=== PATIENT | male | born 1965 | race Caucasian/White ===

== ENCOUNTER → 2024-02-08 13:11 | Outpatient (REF) | payer BC, SELFPAY | LOC: RAD 13:11 | PROVIDERS: ATTENDING PHYSICIAN Physician Assistant; FAMILY PHYSICIAN Family Medicine | DX: M15.9 Polyosteoarthritis, unspecified (principal); M19.049 Primary osteoarthritis, unspecified hand; R20.2 Paresthesia of skin | CPT/HCPCS: 73120 ==

== ENCOUNTER → 2024-02-12 09:08 | Outpatient (REF) | payer BC, SELFPAY ==
[2024-02-12 10:34] LABS: IgA 128 mg/dl (70-400)
[2024-02-12 10:57] LABS: Vitamin D, 25-OH*** 55.9 ng/mL (30-80)
[2024-02-12 11:02] LABS: Total Protein 6.7 g/dl (6.3-8.2)
[2024-02-12 11:10] LABS: TSH Reflex To Free T4 < 0.02 uIU/ml (0.47-4.68)
[2024-02-12 11:40] LABS: Free T4 0.93 ng/dl (0.78-2.19)
[2024-02-12 12:12] LABS: Urine Calcium 17.3 mg/dl
[2024-02-12 13:02] LABS: 24 Hour Urine Total Volume 2000 ml
[2024-02-14 07:51] LABS: Endomysial IgA Antibody Titer <1:10 (<1:10)
[2024-02-14 10:33] LABS: Intact PTH 21.3 pg/ml (13.6-85.8)
[2024-02-14 15:54] LABS: tTG IgA Antibody 7.8 EU/ml (0-19); tTG IgG Antibody 10.3 EU/ml (0-19)
[2024-02-14 20:11] LABS: Albumin 4.26 g/dL (3.75-5.01); Alpha 1 Globulin 0.26 g/dL (0.19-0.46); Alpha 2 Globulin 0.67 g/dL (0.48-1.05); SPEP IFE Reflex Not Done; Total Protein-Electrophoresis 6.6 g/dL (6.3-8.2)
== END ==
LOC: REG 09:08
PROVIDERS: ATTENDING PHYSICIAN Physician Assistant; FAMILY PHYSICIAN Family Medicine
DX: E07.9 Disorder of thyroid, unspecified (principal); E21.5 Disorder of parathyroid gland, unspecified; E55.9 Vitamin D deficiency, unspecified; M15.9 Polyosteoarthritis, unspecified; M19.049 Primary osteoarthritis, unspecified hand; M80.00XA Age-related osteoporosis with current pathological fracture, unspecified site, initial encounter for fracture; R20.2 Paresthesia of skin; Z13.820 Encounter for screening for osteoporosis
CPT/HCPCS: 36415; 81050; 82306; 82340; 82533; 82784; 83516; 83970; 84155; 84165; 84439; 84443; 86231

== ENCOUNTER → 2025-05-31 07:41 | Outpatient (REF) | payer BC, SELFPAY | LOC: MRI 07:41 | PROVIDERS: ATTENDING PHYSICIAN Internal Medicine Rheumatology | DX: G95.9 Disease of spinal cord, unspecified (principal); M54.2 Cervicalgia | CPT/HCPCS: 72141 ==